=== PATIENT | male | born 1945 | race Caucasian/White ===

== ENCOUNTER → 2019-04-20 | Outpatient (CLI) | payer OTHER ==
--- NOTE | 2019-04-21 08:49 | RADIOLOGY REPORT (SQ) ---
EXAM DESCRIPTION: MRI CERVICAL SPINE COMBO COMPLETED DATE/TIME: 04/20/2019 10:54 am REASON FOR STUDY: SP C SPINE SURGERY, CERVICAL PAIN M54.2 CERVICALGIA COMPARISON: None. TECHNIQUE: Sagittal and Axial imaging includes T1, T2, STIR and gradient echo sequences. T1 post cale olinium sequences. CONTRAST TYPE AND DOSE: 15 mL Dotarem. RENAL FUNCTION: Not indicated. ACR Type II contrast agent associated with few, if any, unconfounded cases of NSF LIMITATIONS: Patient motion, artifact from indwelling hardware. FINDINGS: ALIGNMENT: There is straightening of the normal cervical lordosis. VERTEBRAE: Intact. BONE MARROW: Normal. No marrow replacement or reactive changes. DISCS: Normal. No significant abnormal signal or loss of height. HARDWARE: Prior anterior fusion from C3 through C6. CORD AND BASE OF BRAIN: Normal in size and signal intensity. SOFT TISSUES: No soft tissue masses. C1-C2: No significant spinal stenosis. C2-C3: No significant spinal stenosis or exit foraminal stenosis. C3-C4: Mild effacement anterior thecal sac. No significant central stenosis. There is bilateral for aminal narrowing. C4-C5: Again there is mild effacement anterior thecal sac no significant central stenosis. There is bilateral foraminal stenosis. C5-C6: Bilateral foraminal stenosis. No significant central canal narrowing. C6-C7: Bilateral foraminal narrowing right slightly greater than left. No central stenosis. C7-T1: No significant spinal stenosis or exit foraminal stenosis. UPPER THORACIC: Incompletely imaged. No significant spinal stenosis or exit foraminal stenosis. ENHANCEMENT: No abnormal enhancement. OTHER: No other significant finding. IMPRESSION: 1. Postsurgical changes with prior anterior fusion from C3 through C6. 2. Multilevel foraminal stenosis as described above. There is foraminal narrowing at C3-4, C4-5, C5 -C6 and C6-C7. Mild effacement of the thecal sac but no cord impingement. COMMENT: None. TECHNICAL DOCUMENTATION: JOB ID: [id number] [employer]- All Rights Reserved Reading location - IP/workstation name: [email or web address]
== END ==
LOC: RAD 09:42
PROVIDERS: ATTEND Internal Medicine
DX: M54.2 Cervicalgia (principal)
CPT/HCPCS: 82565; 72156; A9576